=== PATIENT | female | born 1940 | race Caucasian/White ===

== ENCOUNTER 2016-04-20 07:28 | Emergency (ER) | payer OTHER ==
[~2016-04-20] VITALS: Ht 165.1 cm; Wt 69.5 kg
[~2016-04-20 07:28] MED LIST: AMBIEN5 MG PO; ASPIR-LOW81 MG PO; ASPIRIN81 M2 PO; ATORVASTATIN CA40 MG PO; BRILINTA90 MG PO; FISH OIL 1,4001 EACH PO; HYDROCHLOROTHIA25 MG PO; KEFLEX500 MG PO; LIPITOR40 MG PO; METOPROLOL SUCC25 MG PO; METOPROLOL TART25 MG PO; NEXIUM40 MG PO; No Home Medications; PYRIDIUM100 MG PO; TRAMADOL HCL50 MG PO
[2016-04-20] MEDS ORDERED: LORTAB 5-325 M1 EACH PO (09:11)
[2016-04-20 09:32] VITALS: BP 114/65
== END 2016-04-20 09:58 | disposition home or self-care (01) ==
LOC: EME 07:28
PROC: 2W3CX1Z Immobilization of Right Lower Arm using Splint (ICD-10-PCS; principal; 2016-04-20)
DX: M19.031 Primary osteoarthritis, right wrist (principal); M79.89 Other specified soft tissue disorders; Z79.82 Long term (current) use of aspirin
CPT/HCPCS: 73110; 99281; 99284

== ENCOUNTER → 2017-09-14 | Outpatient (CLI) | payer MEDICARE, OTHER ==
[~2017-09-14] MED LIST changes: +LORTAB 5-325 M1 EACH PO
== END | disposition home or self-care (01) ==
LOC: CDC 10:39
DX: Z01.810 Encounter for preprocedural cardiovascular examination (principal); N30.10 Interstitial cystitis (chronic) without hematuria
CPT/HCPCS: 93000